=== PATIENT | male | born 1980 | race Caucasian/White ===

== ENCOUNTER 2019-01-26 07:24 | Day surgery (SDC) | payer OTHER ==
[~2019-01-26] VITALS: Ht 188 cm; Wt 159.1 kg
[~2019-01-26 07:24] MED LIST: ALBU90OI INH; AMLO5 PO; AMOCLA875; AMOCLA875 PO; ATEN25 PO; ATEN50 PO; ATOR20 PO; BUPR75 PO; BYDUREON P2 MG/0.65 SC; CITA20 PO; Citalopram HBr40 MG PO; Cleocin HCl300 MG PO; Crestor20 MG PO; EXEN10PI; Esgic Tablet1 EACH PO; GEMF600 PO; Glucophage1000 MG PO; INSULANPEN; LISHYD2012 PO; LOPE2C PO; LOVA20 PO; METF500 PO; METF500C PO; Novolin R100 UNIT/M SC; Novolog100 UNIT/2; Prinivil10 MG PO; ROSU10TA PO; TOBR.3OPO OP; TOUJEO SOL300 UNIT/1 SC; Ultram50 MG PO; VANCOMYCIN2 GM/500 M IV; Zofran Odt8 MG SL; Zofran8 MG PO
--- NOTE | 2019-01-26 10:25 | NUR ---
01/26/19 1025 Jose Pardo ASSISTED PT TO BATHROOM. INFORMED PT OF THE DELAY D/T PREVIOUS CASE RUNNING LONG. PT STATES AN UNDERSTANDING.
--- NOTE | 2019-01-26 11:30 | NUR ---
01/26/19 9998 Jose Pardo INJECTED MYLICON INTO BX PORT PER DR. TREVIZO.
== END 2019-01-26 12:32 | disposition home or self-care (01) ==
LOC: ORSCSDS 07:24
PROVIDERS: Student in an Organized Health Care Education/Training Program
PROC: 0DB98ZX Excision of Duodenum, Via Natural or Artificial Opening Endoscopic, Diagnostic (ICD-10-PCS; principal; 2019-01-26 10:00)
PROC: 0DBH8ZX Excision of Cecum, Via Natural or Artificial Opening Endoscopic, Diagnostic (ICD-10-PCS; principal; 2019-01-26 10:00)
PROC: 0DB48ZX Excision of Esophagogastric Junction, Via Natural or Artificial Opening Endoscopic, Diagnostic (ICD-10-PCS; principal; 2019-01-26 10:00)
DX: K92.1 Melena (principal); D12.0 Benign neoplasm of cecum; D50.9 Iron deficiency anemia, unspecified; K21.0 Gastro-esophageal reflux disease with esophagitis; K64.8 Other hemorrhoids; I10 Essential (primary) hypertension; G47.33 Obstructive sleep apnea (adult) (pediatric); E11.9 Type 2 diabetes mellitus without complications; E66.01 Morbid (severe) obesity due to excess calories; Z68.42 Body mass index [BMI] 45.0-49.9, adult; Z79.899 Other long term (current) drug therapy; Z87.891 Personal history of nicotine dependence
CPT/HCPCS: 82947; 88305; 88312; J2250; J7120

== ENCOUNTER → 2020-02-08 | Outpatient (CLI) | payer OTHER | END | disposition home or self-care (01) | LOC: PLD 14:35 → LAB SHORT 14:35 | DX: B35.3 Tinea pedis (principal) | CPT/HCPCS: 88305; 88312 ==

== ENCOUNTER → 2020-08-01 | Outpatient (CLI) | payer OTHER ==
[2020-08-01 15:15] LABS: Bilirubin, Urine Neg (Neg); Blood, Urine 4+ (Neg); Glucose Qualitative, Urine 2+ (Neg); Ketones, Urine Neg (Neg); Leukocyte Esterase, Urine Neg (Neg); Nitrite, Urine Neg (Neg); Protein, Urine 3+ (Neg); Specific Gravity, Urine 1.015 (1.003-1.022); Urobilinogen, Urine NORM (Normal)
[2020-08-01 15:22] LABS: Appearance, Urine Clear (Clear); Color, Urine Yellow (P-Yellow)
[2020-08-01 15:24] LABS: Amorphous Light (0-Heavy); Bacteria Few /hpf; Squamous Epithelial Cells Not Seen /hpf (Few); White Blood Cells, Urine 0-2 /hpf (0-5)
== END | disposition home or self-care (01) ==
LOC: LAB SHORT 13:57 → LAB 13:57
PROVIDERS: Internal Medicine
DX: N17.9 Acute kidney failure, unspecified (principal); R31.9 Hematuria, unspecified
CPT/HCPCS: 81001

== ENCOUNTER → 2021-11-24 | Outpatient (CLI) | payer OTHER | END | disposition home or self-care (01) | LOC: LAB SHORT 15:00 | DX: N18.30 Chronic kidney disease, stage 3 unspecified (principal); N39.0 Urinary tract infection, site not specified | CPT/HCPCS: 87086 ==

== ENCOUNTER → 2022-09-12 | Outpatient (CLI) | payer OTHER ==
[~2022-09-12] MED LIST changes: +HUMULIN R500 UNIT/2 SC
[2022-09-12 13:33] LABS: BASOPHILS ABSOLUTE AUTO 0.05 K/mm3 (0.00-0.23); BASOPHILS PERCENT AUTO 0 % (0-2); EOSINOPHILS ABSOLUTE AUTO 0.17 K/mm3 (0.00-0.68); EOSINOPHILS PERCENT AUTO 1 % (0-6); Hemoglobin 12.9 g/dL (13.5-17.5); IMMATURE GRAN ABSOLUTE AUTO 0.04 K/mm3 (0.00-0.10); IMMATURE GRAN PERCENT AUTO 0 % (0-1); LYMPHOCYTES ABSOLUTE AUTO 1.37 K/mm3 (0.84-5.20); LYMPHOCYTES PERCENT AUTO 11 % (21-46); MONOCYTES ABSOLUTE AUTO 0.85 K/mm3 (0.16-1.47); MONOCYTES PERCENT AUTO 7 % (4-13); Mean Corpuscular HGB 28.3 pg (26.0-34.0); Mean Corpuscular HGB Conc 32.3 g/dL (31.5-36.5); Mean Corpuscular Volume 88 fL (80-100); Mean Platelet Volume 9.3 fL (9.1-12.4); NEUTROPHILS ABSOLUTE AUTO 10.22 K/mm3 (1.96-9.15); NEUTROPHILS PERCENT AUTO 81 % (41-73); Platelet Count 447 K/mm3 (150-400); RDW Coefficient Variation 14.6 % (11.7-14.2); RDW Standard Deviation 46.7 fL (35.1-46.3); Red Blood Cell Count 4.56 M/mm3 (4.30-5.90)
[2022-09-12 13:46] LABS: Albumin/Globulin Ratio 0.9 (0.8-1.8); Bilirubin, Total 1.1 mg/dL (0.1-1.0); Bun/Creatinine Ratio 17.9 (12.0-20.0); Creatinine, Blood 1.12 mg/dL (0.60-1.20); Globulin, Blood 4.7 g/dL (2.2-4.0); Total Protein, Blood 8.7 g/dL (6.4-8.2)
== END ==
LOC: LAB SHORT 13:28 → LAB 13:28
PROVIDERS: Physician Assistant
DX: K76.9 Liver disease, unspecified (principal); R53.83 Other fatigue
CPT/HCPCS: 80053; 83690; 85025

== ENCOUNTER → 2023-11-04 | Outpatient (CLI) | payer OTHER ==
[2023-11-04 19:15] LABS: Creatinine Urine 57.4 mg/dL (27.00-270.00); Protein, Urine Quantitative 185.9 mg/dL (0.0-11.9)
== END | disposition home or self-care (01) ==
LOC: LAB 06:30 → LAB SHORT 06:30 → LAB FUT 10-24 12:20
PROVIDERS: Internal Medicine Nephrology
DX: N18.2 Chronic kidney disease, stage 2 (mild) (principal); D63.1 Anemia in chronic kidney disease; N25.81 Secondary hyperparathyroidism of renal origin; E55.9 Vitamin D deficiency, unspecified; E29.1 Testicular hypofunction; R76.9 Abnormal immunological finding in serum, unspecified; R94.5 Abnormal results of liver function studies; R94.6 Abnormal results of thyroid function studies
CPT/HCPCS: 81050; 82043; 82570; 84156

== ENCOUNTER → 2023-12-19 | Outpatient (CLI) | payer OTHER ==
[~2023-12-19] MED LIST changes: +Actos45 MG PO; +BYDUREON B2 MG/0.81 SC; -Crestor20 MG PO; +Crestor40 MG PO; +FAMO20 PO; +GLUCOPHAGE1000 M1 PO; +Norco 5-325 Ta1 EACH PO; +Prednisone50 MG
[2023-12-19 12:56] LABS: Creatinine Urine 55.2 mg/dL (27.00-270.00); Protein, Urine Quantitative 210.6 mg/dL (0.0-11.9)
== END ==
LOC: LAB EV 09:49 → LAB SHORT 09:49
PROVIDERS: Internal Medicine Nephrology
DX: N18.2 Chronic kidney disease, stage 2 (mild) (principal); D63.1 Anemia in chronic kidney disease; N25.81 Secondary hyperparathyroidism of renal origin; E78.00 Pure hypercholesterolemia, unspecified; R76.9 Abnormal immunological finding in serum, unspecified; R94.5 Abnormal results of liver function studies
CPT/HCPCS: 81050; 82043; 82570; 84156

== ENCOUNTER → 2024-02-24 | Outpatient (CLI) | payer OTHER | LOC: LAB 12:00 → LAB SHORT 12:00 | DX: L30.9 Dermatitis, unspecified (principal) | CPT/HCPCS: 87220 ==

== ENCOUNTER 2024-07-17 08:59 | Day surgery (SDC) | payer OTHER ==
[~2024-07-17] VITALS: Ht 188 cm; Wt 175.5 kg
[~2024-07-17 08:59] MED LIST changes: +Lactated Ringer's 1,000 ML IV ONE; +Lidocaine HCl/Pf 1% 5 ML VIAL ONE; +Ropivacaine 0.5% HCL/PF 5 MG/ML 30ML Vial ONE
[2024-07-17] MEDS ORDERED: Lactated Ringer's 1,000 ML IV ONE (09:41)
--- NOTE | 2024-07-17 09:42 | NUR ---
07/17/24 0942 George Rogers CALL LIGHT WITHIN REACH.
[2024-07-17] MEDS ORDERED: LISI5 PO (09:46)
[2024-07-17] MEDS ORDERED: RYBELSUS14 MG PO (09:47)
[2024-07-17] MEDS ORDERED: K-TAB ER20 MEQ PO (09:47)
[2024-07-17] MEDS ORDERED: FURO40 PO (09:48)
[2024-07-17] MEDS ORDERED: CeFAZolin Sodium 1000 mg Vial ONE (10:04)
[2024-07-17] MEDS ORDERED: NS 0 ML IV ONE (10:04)
[2024-07-17] MEDS ORDERED: CeFAZolin Sodium 2,000 MG VIAL ONE (10:05)
[2024-07-17] MEDS ORDERED: CeFAZolin Sodium 3,000 MG in NS 100 ML IV SCH (10:10)
[2024-07-17] MEDS ORDERED: FentaNYL Citrate 50 MCG/ML 2 ML Injection ONE (10:39)
[2024-07-17] MEDS ORDERED: Midazolam HCl 1MG / ML 2ML Vial ONE (10:39)
[2024-07-17] MEDS ORDERED: Midazolam HCL 1 MG/ML 5MLVIAL ONE (11:28)
--- NOTE | 2024-07-17 11:35 | NUR ---
07/17/24 1135 Nirmala Noel LIDOCAINE 1% MIXED 1:1 WITH ROPIVACAINE 0.5% TO MAKE LOCAL FOR INJECTION AT THE OPSITE BY DR CLIFTON.
[2024-07-17] MEDS ORDERED: Ondansetron HCl 2 MG / ML 2ML Vial ONE (12:05)
[2024-07-17 12:50] VITALS: BP 152/71
[2024-07-17] MEDS ORDERED: Ibuprofen 600 MG Tab ONE (13:19)
--- NOTE | 2024-07-17 13:26 | NUR ---
07/17/24 1326 Cynthia Clements PT. VERBALIZES OK NOT TO CALL OFFICE FOR RX. PT. VERBALIZES HE WILL JUST TAKE TYLENOL AT HOME. INSTRUCTED PT. THAT IF TYLENOL DIDN'T WORK TO CALL THE DR. PT. AGREED. PT. REFUSED THE IBUPROFEN ORDERED.
== END 2024-07-17 13:54 | disposition home or self-care (01) ==
LOC: ORSCSDS 08:59
PROVIDERS: Podiatrist
PROC: 0L8V0ZZ Division of Right Foot Tendon, Open Approach (ICD-10-PCS; principal; 2024-07-17 10:30)
PROC: 0L8W0ZZ Division of Left Foot Tendon, Open Approach (ICD-10-PCS; principal; 2024-07-17 10:30)
DX: L97.512 Non-pressure chronic ulcer of other part of right foot with fat layer exposed (principal); L97.522 Non-pressure chronic ulcer of other part of left foot with fat layer exposed; M20.5X1 Other deformities of toe(s) (acquired), right foot; M20.42 Other hammer toe(s) (acquired), left foot; M20.41 Other hammer toe(s) (acquired), right foot; I10 Essential (primary) hypertension; G47.33 Obstructive sleep apnea (adult) (pediatric); J45.909 Unspecified asthma, uncomplicated; E11.9 Type 2 diabetes mellitus without complications; E78.00 Pure hypercholesterolemia, unspecified; E66.01 Morbid (severe) obesity due to excess calories; Z68.43 Body mass index [BMI] 50.0-59.9, adult; Z79.899 Other long term (current) drug therapy; Z87.891 Personal history of nicotine dependence; Z79.84 Long term (current) use of oral hypoglycemic drugs; Z79.4 Long term (current) use of insulin
CPT/HCPCS: 82947; A9270; C1713; J0690; J2001; J2250; J2405; J2795; J3010; J7120

== ENCOUNTER → 2024-12-01 | Outpatient (CLI) | payer OTHER ==
[~2024-12-01] MED LIST changes: +FURO40 PO; +K-TAB ER20 MEQ PO; +LISI5 PO; -Lactated Ringer's 1,000 ML IV ONE; -Lidocaine HCl/Pf 1% 5 ML VIAL ONE; +RYBELSUS14 MG PO; -Ropivacaine 0.5% HCL/PF 5 MG/ML 30ML Vial ONE
== END | disposition home or self-care (01) ==
LOC: LAB SHORT 17:01 → LAB 17:01
DX: L03.032 Cellulitis of left toe (principal); L97.522 Non-pressure chronic ulcer of other part of left foot with fat layer exposed; E11.42 Type 2 diabetes mellitus with diabetic polyneuropathy
CPT/HCPCS: 87070; 87077; 87186; 87205

== ENCOUNTER → 2025-03-04 | Outpatient (CLI) | payer OTHER | LOC: LAB 15:30 → LAB SHORT 15:30 | DX: E11.42 Type 2 diabetes mellitus with diabetic polyneuropathy (principal); L97.522 Non-pressure chronic ulcer of other part of left foot with fat layer exposed | CPT/HCPCS: 87071; 87075; 87077; 87186; 87205 ==

== ENCOUNTER → 2025-03-17 | Outpatient (CLI) | payer OTHER ==
[2025-03-22 20:04] LABS: CORTISOL,URINE FREE - PER 24H 33.9 ug/d (<=60.0); CORTISOL,URN FREE - PER VOLUME 8.06 ug/L; CREATININE,URINE - PER 24H 3528 mg/d (1000-2500); CREATININE,URINE - PER VOLUME 84 mg/dL; HOURS COLLECTED 24 hr; TOTAL VOLUME 4200 mL
== END | disposition home or self-care (01) ==
LOC: LAB SHORT 08:45 → LAB 08:45
PROVIDERS: Internal Medicine Nephrology
DX: N18.2 Chronic kidney disease, stage 2 (mild) (principal); D63.1 Anemia in chronic kidney disease; E29.1 Testicular hypofunction; N25.81 Secondary hyperparathyroidism of renal origin; E55.9 Vitamin D deficiency, unspecified; N40.1 Benign prostatic hyperplasia with lower urinary tract symptoms; R39.9 Unspecified symptoms and signs involving the genitourinary system; R76.9 Abnormal immunological finding in serum, unspecified; R94.5 Abnormal results of liver function studies; R94.6 Abnormal results of thyroid function studies
CPT/HCPCS: 81050; 82530

== ENCOUNTER 2025-05-16 18:44 | Emergency (ER) | payer OTHER ==
[~2025-05-16] VITALS: Ht 188 cm; Wt 165.6 kg
[2025-05-16 19:44] LABS: BASOPHILS ABSOLUTE AUTO 0.08 K/mm3 (0.00-0.23); BASOPHILS PERCENT AUTO 1 % (0-2); EOSINOPHILS ABSOLUTE AUTO 0.18 K/mm3 (0.00-0.68); EOSINOPHILS PERCENT AUTO 2 % (0-6); Hematocrit 36.1 % (37.0-53.0); Hemoglobin 11.2 g/dL (13.5-17.5); IMMATURE GRAN ABSOLUTE AUTO 0.04 K/mm3 (0.00-0.10); IMMATURE GRAN PERCENT AUTO 0 % (0-1); LYMPHOCYTES ABSOLUTE AUTO 2.28 K/mm3 (0.84-5.20); LYMPHOCYTES PERCENT AUTO 22 % (21-46); MONOCYTES PERCENT AUTO 8 % (4-13); Mean Corpuscular HGB 26.4 pg (26.0-34.0); Mean Corpuscular Volume 85 fL (80-100); Mean Platelet Volume 9.5 fL (9.1-12.4); NEUTROPHILS PERCENT AUTO 67 % (41-73); Platelet Count 476 K/mm3 (150-400); RDW Coefficient Variation 15.3 % (11.7-14.2); RDW Standard Deviation 46.7 fL (35.1-46.3); Red Blood Cell Count 4.24 M/mm3 (4.30-5.90); White Blood Cell Count 10.18 K/mm3 (4.00-11.30)
[2025-05-16 19:44] LABS: Source, Urine Clean Catch
[2025-05-16 19:58] LABS: Appearance, Urine Clear (Clear); Bilirubin, Urine Neg (Neg); Blood, Urine 1+ (Neg); Color, Urine Yellow (P-Yellow); Glucose Qualitative, Urine Neg (Neg); Ketones, Urine Neg (Neg); Leukocyte Esterase, Urine Neg (Neg); Nitrite, Urine Neg (Neg); Protein, Urine 3+ (Neg); Specific Gravity, Urine 1.015 (1.003-1.022); Urobilinogen, Urine NORM (Normal)
[2025-05-16 20:04] LABS: Albumin, Blood 3.7 g/dL (3.4-5.0); Albumin/Globulin Ratio 0.8 (0.8-1.8); Bilirubin, Total 0.7 mg/dL (0.1-1.0); Bun/Creatinine Ratio 29.6 (12.0-20.0); Calcium, Blood 10.1 mg/dL (8.5-10.1); Creatinine, Blood 1.35 mg/dL (0.60-1.20); Globulin, Blood 4.7 g/dL (2.2-4.0); Potassium, Blood 4.5 mmol/L (3.5-5.5); Total Protein, Blood 8.4 g/dL (6.4-8.2)
[2025-05-16 20:10] LABS: Bacteria Not Seen /hpf; Mucus Light (0-Heavy); Red Blood Cells, Urine 0-2 /hpf (0-2); Squamous Epithelial Cells Not Seen /hpf (Few); White Blood Cells, Urine Not Seen /hpf (0-5)
[2025-05-16 20:30] VITALS: BP 149/73
== END 2025-05-16 20:40 | disposition home or self-care (01) ==
LOC: ER 18:44
PROVIDERS: Emergency Medicine
DX: N39.0 Urinary tract infection, site not specified (principal)
CPT/HCPCS: 80053; 81001; 85025; 99283

== ENCOUNTER → 2025-05-27 | Outpatient (CLI) | payer OTHER ==
[2025-05-27 11:22] LABS: Protein, Urine Quantitative 105.6 mg/dL (0.0-11.9)
[2025-05-27 11:32] LABS: Microalbumin, Urine Quant. 427.0 mg/L (0.000-20.000)
[2025-06-01 07:53] LABS: CORTISOL,U FREE - RATIO TO CRT 9.52 ug/g CRT; CORTISOL,URINE FREE - PER 24H 6.3 ug/d (<=60.0); CORTISOL,URN FREE - PER VOLUME 8.66 ug/L; CREATININE,URINE - PER 24H 664 mg/d (1000-2500); CREATININE,URINE - PER VOLUME 91 mg/dL; HOURS COLLECTED 24 hr
== END ==
LOC: LAB SHORT 07:30 → LAB 07:30 → LAB FUT 05-26 09:10
PROVIDERS: Internal Medicine Nephrology
DX: N18.30 Chronic kidney disease, stage 3 unspecified (principal); D63.1 Anemia in chronic kidney disease; N25.81 Secondary hyperparathyroidism of renal origin; E55.9 Vitamin D deficiency, unspecified; E78.00 Pure hypercholesterolemia, unspecified; R76.9 Abnormal immunological finding in serum, unspecified; R94.5 Abnormal results of liver function studies; R94.6 Abnormal results of thyroid function studies
CPT/HCPCS: 81050; 82043; 82530; 82570; 84156

== ENCOUNTER → 2025-09-14 | Outpatient (CLI) | payer OTHER ==
[2025-09-14 16:10] LABS: Hematocrit 35.3 % (37.0-53.0); Hemoglobin 10.8 g/dL (13.5-17.5); Mean Corpuscular HGB Conc 30.6 g/dL (31.5-36.5); Mean Corpuscular Volume 87 fL (80-100); NRBC ABSOLUTE 0.00 K/mm3 (0.00-0.02); NRBC Auto 0.0 /100 WBC (0.0-0.2); Platelet Count 573 K/mm3 (150-400); RDW Coefficient Variation 14.7 % (11.7-14.2); RDW Standard Deviation 46.7 fL (35.1-46.3)
== END | disposition home or self-care (01) ==
LOC: LAB 09:00 → LAB SHORT 09:00
PROVIDERS: Podiatrist
DX: L97.512 Non-pressure chronic ulcer of other part of right foot with fat layer exposed (principal); M14.671 Charcot's joint, right ankle and foot
CPT/HCPCS: 36415; 85027; 85651; 87070; 87077; 87147; 87186; 87205

== ENCOUNTER 2025-09-16 11:55 | Day surgery (SDC) | payer OTHER ==
[~2025-09-16 11:55] MED LIST changes: +HUMULIN R500 UNIT/1 SC
[2025-09-16] MEDS ORDERED: DAPTOmycin 650 MG in NS 50 ML IV SCH (12:05)
[2025-09-16 13:25] VITALS: BP 141/77
== END 2025-09-16 14:10 | disposition home or self-care (01) ==
LOC: ATC 11:55
DX: E11.42 Type 2 diabetes mellitus with diabetic polyneuropathy (principal); M14.671 Charcot's joint, right ankle and foot; E11.621 Type 2 diabetes mellitus with foot ulcer; L97.511 Non-pressure chronic ulcer of other part of right foot limited to breakdown of skin; E11.622 Type 2 diabetes mellitus with other skin ulcer; L97.312 Non-pressure chronic ulcer of right ankle with fat layer exposed; I12.9 Hypertensive chronic kidney disease with stage 1 through stage 4 chronic kidney disease, or unspecified chronic kidney disease; E11.22 Type 2 diabetes mellitus with diabetic chronic kidney disease; N18.2 Chronic kidney disease, stage 2 (mild); E78.00 Pure hypercholesterolemia, unspecified; M19.90 Unspecified osteoarthritis, unspecified site; E66.9 Obesity, unspecified; Z68.42 Body mass index [BMI] 45.0-49.9, adult; Z87.891 Personal history of nicotine dependence; Z79.4 Long term (current) use of insulin; Z79.83 Long term (current) use of bisphosphonates; Z79.84 Long term (current) use of oral hypoglycemic drugs; Z79.899 Other long term (current) drug therapy; R80.9 Proteinuria, unspecified; D63.1 Anemia in chronic kidney disease; N25.81 Secondary hyperparathyroidism of renal origin; R94.6 Abnormal results of thyroid function studies
CPT/HCPCS: 82043; 82570; 84156; 96365; J0878

== ENCOUNTER → 2025-09-16 | Outpatient (CLI) | payer OTHER ==
[2025-09-16 16:50] LABS: Microalbumin, Urine Quant. 326.0 mg/L (0.000-20.000); Protein, Urine Quantitative 69.7 mg/dL (0.0-11.9)
== END ==
LOC: LAB SHORT 13:38 → LAB 13:38 → LAB FUT 07-13 09:55
PROVIDERS: Internal Medicine Nephrology
DX: N18.30 Chronic kidney disease, stage 3 unspecified (principal); R80.9 Proteinuria, unspecified; D63.1 Anemia in chronic kidney disease; N25.81 Secondary hyperparathyroidism of renal origin; R76.9 Abnormal immunological finding in serum, unspecified; R94.6 Abnormal results of thyroid function studies
CPT/HCPCS: 82043; 82570; 84156

== ENCOUNTER 2025-09-17 01:22 | Day surgery (SDC) | payer OTHER ==
[2025-09-17] MEDS ORDERED: DAPTOmycin 650 MG in NS 50 ML IV SCH (06:00)
[2025-09-17 13:07] VITALS: BP 130/70
== END 2025-09-17 13:30 | disposition home or self-care (01) ==
LOC: ATC 01:22
DX: E11.621 Type 2 diabetes mellitus with foot ulcer (principal); E11.42 Type 2 diabetes mellitus with diabetic polyneuropathy; M14.671 Charcot's joint, right ankle and foot; L97.511 Non-pressure chronic ulcer of other part of right foot limited to breakdown of skin; L97.312 Non-pressure chronic ulcer of right ankle with fat layer exposed; E11.22 Type 2 diabetes mellitus with diabetic chronic kidney disease; N18.2 Chronic kidney disease, stage 2 (mild); E11.51 Type 2 diabetes mellitus with diabetic peripheral angiopathy without gangrene; I12.9 Hypertensive chronic kidney disease with stage 1 through stage 4 chronic kidney disease, or unspecified chronic kidney disease; Z89.411 Acquired absence of right great toe; Z79.4 Long term (current) use of insulin; Z79.899 Other long term (current) drug therapy
CPT/HCPCS: 96365; 99211; J0878

== ENCOUNTER 2025-09-18 00:11 | Day surgery (SDC) | payer OTHER ==
[~2025-09-18 00:11] MED LIST changes: -HUMULIN R500 UNIT/1 SC
[2025-09-18] MEDS ORDERED: DAPTOmycin 650 MG in NS 50 ML IV SCH (06:00)
[2025-09-18 13:27] VITALS: BP 120/75
== END 2025-09-18 13:47 | disposition home or self-care (01) ==
LOC: ATC 00:11
DX: E11.621 Type 2 diabetes mellitus with foot ulcer (principal); E11.42 Type 2 diabetes mellitus with diabetic polyneuropathy; M14.671 Charcot's joint, right ankle and foot; L97.511 Non-pressure chronic ulcer of other part of right foot limited to breakdown of skin; L97.312 Non-pressure chronic ulcer of right ankle with fat layer exposed; I12.9 Hypertensive chronic kidney disease with stage 1 through stage 4 chronic kidney disease, or unspecified chronic kidney disease; N18.2 Chronic kidney disease, stage 2 (mild); E11.22 Type 2 diabetes mellitus with diabetic chronic kidney disease; E11.51 Type 2 diabetes mellitus with diabetic peripheral angiopathy without gangrene; Z87.891 Personal history of nicotine dependence; Z79.4 Long term (current) use of insulin; Z79.899 Other long term (current) drug therapy
CPT/HCPCS: 96365; J0878

== ENCOUNTER 2025-09-19 01:31 | Day surgery (SDC) | payer OTHER ==
[2025-09-19] MEDS ORDERED: DAPTOmycin 650 MG in NS 50 ML IV SCH (06:00)
[2025-09-19 13:32] VITALS: BP 130/79
== END 2025-09-19 13:54 | disposition home or self-care (01) ==
LOC: ATC 01:31
DX: E11.621 Type 2 diabetes mellitus with foot ulcer (principal); E11.42 Type 2 diabetes mellitus with diabetic polyneuropathy; M14.671 Charcot's joint, right ankle and foot; L97.511 Non-pressure chronic ulcer of other part of right foot limited to breakdown of skin; L97.312 Non-pressure chronic ulcer of right ankle with fat layer exposed
CPT/HCPCS: 96365; J0878

== ENCOUNTER 2025-09-20 01:15 | Day surgery (SDC) | payer OTHER ==
[2025-09-20] MEDS ORDERED: DAPTOmycin 650 MG in NS 50 ML IV SCH (06:00)
[2025-09-20 13:27] VITALS: BP 142/101
== END 2025-09-20 13:59 | disposition home or self-care (01) ==
LOC: ATC 01:15
DX: E11.621 Type 2 diabetes mellitus with foot ulcer (principal); E11.42 Type 2 diabetes mellitus with diabetic polyneuropathy; M14.671 Charcot's joint, right ankle and foot; L97.511 Non-pressure chronic ulcer of other part of right foot limited to breakdown of skin; L97.312 Non-pressure chronic ulcer of right ankle with fat layer exposed; Z87.891 Personal history of nicotine dependence
CPT/HCPCS: 96365; J0878

== ENCOUNTER 2025-09-21 01:10 | Day surgery (SDC) | payer OTHER ==
[2025-09-21] MEDS ORDERED: DAPTOmycin 650 MG in NS 50 ML IV SCH (06:00)
[2025-09-21 13:07] VITALS: BP 120/68
== END 2025-09-21 13:27 | disposition home or self-care (01) ==
LOC: ATC 01:10
DX: E11.621 Type 2 diabetes mellitus with foot ulcer (principal); L97.511 Non-pressure chronic ulcer of other part of right foot limited to breakdown of skin; L97.312 Non-pressure chronic ulcer of right ankle with fat layer exposed; E11.42 Type 2 diabetes mellitus with diabetic polyneuropathy; E11.51 Type 2 diabetes mellitus with diabetic peripheral angiopathy without gangrene; E11.610 Type 2 diabetes mellitus with diabetic neuropathic arthropathy; I12.9 Hypertensive chronic kidney disease with stage 1 through stage 4 chronic kidney disease, or unspecified chronic kidney disease; E11.22 Type 2 diabetes mellitus with diabetic chronic kidney disease; N18.2 Chronic kidney disease, stage 2 (mild); E78.00 Pure hypercholesterolemia, unspecified; M19.90 Unspecified osteoarthritis, unspecified site; E66.9 Obesity, unspecified; Z68.42 Body mass index [BMI] 45.0-49.9, adult; Z87.891 Personal history of nicotine dependence; Z79.4 Long term (current) use of insulin; Z79.899 Other long term (current) drug therapy; Z89.411 Acquired absence of right great toe
CPT/HCPCS: 96365; J0878

== ENCOUNTER 2025-09-22 01:48 | Day surgery (SDC) | payer OTHER ==
[~2025-09-22 01:48] MED LIST changes: +HUMULIN R500 UNIT/1 SC
[2025-09-22] MEDS ORDERED: DAPTOmycin 650 MG in NS 50 ML IV SCH (06:00)
[2025-09-22 13:28] VITALS: BP 140/75
== END 2025-09-22 13:54 | disposition home or self-care (01) ==
LOC: ATC 01:48
DX: E11.42 Type 2 diabetes mellitus with diabetic polyneuropathy (principal); M14.671 Charcot's joint, right ankle and foot; L97.511 Non-pressure chronic ulcer of other part of right foot limited to breakdown of skin; L97.312 Non-pressure chronic ulcer of right ankle with fat layer exposed; I12.9 Hypertensive chronic kidney disease with stage 1 through stage 4 chronic kidney disease, or unspecified chronic kidney disease; E11.22 Type 2 diabetes mellitus with diabetic chronic kidney disease; N18.2 Chronic kidney disease, stage 2 (mild); E78.00 Pure hypercholesterolemia, unspecified; M19.172 Post-traumatic osteoarthritis, left ankle and foot; E11.51 Type 2 diabetes mellitus with diabetic peripheral angiopathy without gangrene; E66.9 Obesity, unspecified; Z68.42 Body mass index [BMI] 45.0-49.9, adult; Z87.891 Personal history of nicotine dependence; Z79.2 Long term (current) use of antibiotics; Z79.4 Long term (current) use of insulin; Z79.83 Long term (current) use of bisphosphonates; Z79.84 Long term (current) use of oral hypoglycemic drugs; Z79.899 Other long term (current) drug therapy
CPT/HCPCS: 96365; 99211; J0878

== ENCOUNTER 2025-10-19 21:38 | Emergency (ER) | payer OTHER ==
[~2025-10-19] VITALS: Ht 188 cm; Wt 160.6 kg
[2025-10-19 22:02] LABS: BASOPHILS ABSOLUTE AUTO 0.04 K/mm3 (0.00-0.23); BASOPHILS PERCENT AUTO 0 % (0-2); EOSINOPHILS ABSOLUTE AUTO 0.01 K/mm3 (0.00-0.68); EOSINOPHILS PERCENT AUTO 0 % (0-6); Hematocrit 35.6 % (37.0-53.0); Hemoglobin 11.5 g/dL (13.5-17.5); IMMATURE GRAN ABSOLUTE AUTO 0.06 K/mm3 (0.00-0.10); IMMATURE GRAN PERCENT AUTO 1 % (0-1); LYMPHOCYTES ABSOLUTE AUTO 0.77 K/mm3 (0.84-5.20); LYMPHOCYTES PERCENT AUTO 7 % (21-46); MONOCYTES ABSOLUTE AUTO 0.79 K/mm3 (0.16-1.47); MONOCYTES PERCENT AUTO 7 % (4-13); Mean Corpuscular HGB Conc 32.3 g/dL (31.5-36.5); Mean Corpuscular Volume 85 fL (80-100); NEUTROPHILS ABSOLUTE AUTO 9.25 K/mm3 (1.96-9.15); NEUTROPHILS PERCENT AUTO 85 % (41-73); NRBC ABSOLUTE 0.00 K/mm3 (0.00-0.02); NRBC Auto 0.0 /100 WBC (0.0-0.2); Platelet Count 332 K/mm3 (150-400); RDW Coefficient Variation 15.9 % (11.7-14.2); RDW Standard Deviation 49.3 fL (35.1-46.3)
[2025-10-19 22:29] LABS: Alanine Aminotransfer (ALT/SGP 49.0 U/L (12-78); Albumin, Blood 3.8 g/dL (3.4-5.0); Albumin/Globulin Ratio 0.8 (0.8-1.8); Anion Gap 11.0 mmol/L (3-11); Aspartate Aminotrans (AST/SGOT 39.0 U/L (12-37); Bilirubin, Total 1.1 mg/dL (0.1-1.0); Blood Urea Nitrogen 32.0 mg/dL (8-24); CO2, Blood 23.0 mmol/L (21-32); Calcium, Blood 9.6 mg/dL (8.5-10.1); Chloride, Blood 100.0 mmol/L (98-108); Creatinine, Blood 2.77 mg/dL (0.60-1.20); Globulin, Blood 4.7 g/dL (2.2-4.0); Glucose, Blood 220.0 mg/dL (70-99); Potassium, Blood 4.5 mmol/L (3.5-5.5); Sodium, Blood 129.0 mmol/L (136-145); Total Protein, Blood 8.5 g/dL (6.4-8.2)
[2025-10-19 22:44] LABS: Influenza A, PCR NEGATIVE (NEGATIVE); Influenza B, PCR NEGATIVE (NEGATIVE); Resp Syncytial Virus, PCR NEGATIVE (NEGATIVE); SARS-Cov-2 (COVID-19) PCR, MMC NEGATIVE (NEGATIVE)
[2025-10-20] MEDS ORDERED: NS 1,000 ML IV SCH (00:15)
[2025-10-20 01:10] LABS: Magnesium, Blood 1.6 mg/dL (1.6-2.4); Phosphorus, Blood 2.5 mg/dL (2.5-4.9)
[2025-10-20 02:25] LABS: Source, Urine Clean Catch
[2025-10-20 02:30] LABS: Bilirubin, Urine Neg (Neg); Glucose Qualitative, Urine Neg (Neg); Ketones, Urine Neg (Neg); Leukocyte Esterase, Urine Neg (Neg); Protein, Urine 3+ (Neg); Specific Gravity, Urine 1.015 (1.003-1.022); Urobilinogen, Urine NORM (Normal)
[2025-10-20 02:35] LABS: Color, Urine Yellow (P-Yellow)
[2025-10-20 02:36] LABS: Red Blood Cells, Urine 0-2 /hpf (0-2); White Blood Cells, Urine 0-2 /hpf (0-5)
[2025-10-20 04:30] VITALS: BP 124/65
== END 2025-10-20 05:21 | disposition home or self-care (01) ==
LOC: ER 21:38
PROVIDERS: Emergency Medicine; Student in an Organized Health Care Education/Training Program
DX: R06.02 Shortness of breath (principal); R79.89 Other specified abnormal findings of blood chemistry; I10 Essential (primary) hypertension; E11.9 Type 2 diabetes mellitus without complications; E78.5 Hyperlipidemia, unspecified; G47.33 Obstructive sleep apnea (adult) (pediatric); Z87.891 Personal history of nicotine dependence; Z79.84 Long term (current) use of oral hypoglycemic drugs; Z79.52 Long term (current) use of systemic steroids; Z79.899 Other long term (current) drug therapy; Z79.4 Long term (current) use of insulin
CPT/HCPCS: 71046; 71260; 80053; 81001; 83735; 84100; 84484; 85025; 85379; 87637; 93005; 93010; 96360-59; 99285-25; J7030; Q9967

== ENCOUNTER 2025-10-20 15:59 | Inpatient (IN) | payer OTHER ==
[~2025-10-20] VITALS: Ht 188 cm; Wt 158.9 kg
[2025-10-20] MEDS ORDERED: Ipratropium/Albuterol SulF 2.5-0.5MG/3 ML Amp INH ONE (16:10)
[2025-10-20 17:03] LABS: BASOPHILS ABSOLUTE AUTO 0.04 K/mm3 (0.00-0.23); BASOPHILS PERCENT AUTO 0 % (0-2); EOSINOPHILS ABSOLUTE AUTO 0.03 K/mm3 (0.00-0.68); EOSINOPHILS PERCENT AUTO 0 % (0-6); Hematocrit 29.7 % (37.0-53.0); Hemoglobin 9.6 g/dL (13.5-17.5); IMMATURE GRAN ABSOLUTE AUTO 0.06 K/mm3 (0.00-0.10); IMMATURE GRAN PERCENT AUTO 0 % (0-1); LYMPHOCYTES ABSOLUTE AUTO 1.17 K/mm3 (0.84-5.20); LYMPHOCYTES PERCENT AUTO 9 % (21-46); MONOCYTES ABSOLUTE AUTO 1.72 K/mm3 (0.16-1.47); MONOCYTES PERCENT AUTO 13 % (4-13); Mean Corpuscular HGB Conc 32.3 g/dL (31.5-36.5); Mean Corpuscular Volume 85 fL (80-100); NEUTROPHILS ABSOLUTE AUTO 10.50 K/mm3 (1.96-9.15); NEUTROPHILS PERCENT AUTO 78 % (41-73); NRBC ABSOLUTE 0.00 K/mm3 (0.00-0.02); NRBC Auto 0.0 /100 WBC (0.0-0.2); Platelet Count 290 K/mm3 (150-400); RDW Coefficient Variation 16.2 % (11.7-14.2); RDW Standard Deviation 50.4 fL (35.1-46.3)
[2025-10-20 17:15] LABS: Alanine Aminotransfer (ALT/SGP 36.0 U/L (12-78); Albumin, Blood 2.7 g/dL (3.4-5.0); Albumin/Globulin Ratio 0.6 (0.8-1.8); Anion Gap 10.0 mmol/L (3-11); Aspartate Aminotrans (AST/SGOT 29.0 U/L (12-37); Bilirubin, Total 1.1 mg/dL (0.1-1.0); Blood Urea Nitrogen 41.0 mg/dL (8-24); CO2, Blood 21.0 mmol/L (21-32); Calcium, Blood 8.3 mg/dL (8.5-10.1); Chloride, Blood 103.0 mmol/L (98-108); Creatinine, Blood 3.45 mg/dL (0.60-1.20); Globulin, Blood 4.4 g/dL (2.2-4.0); Glucose, Blood 184.0 mg/dL (70-99); Potassium, Blood 4.3 mmol/L (3.5-5.5); Sodium, Blood 130.0 mmol/L (136-145); Total Protein, Blood 7.1 g/dL (6.4-8.2)
[2025-10-20] MEDS ORDERED: NS 1,000 ML IV SCH ×3 (19:00→22:00)
[2025-10-20] MEDS ORDERED: Vancomycin (Pharmacy Consult) IV PRN (19:30)
[2025-10-20] MEDS ORDERED: Vancomycin HCL 2,500 MG in NS 500 ML IV ONE (19:30)
[2025-10-20] MEDS ORDERED: Cefepime HCl 2,000 MG in NS 100 ML IV ONE (19:30)
[2025-10-20 21:30] VITALS: BP 89/51
[2025-10-20] MEDS ORDERED: NS 500 ML IV SCH (21:45)
[2025-10-20 22:00] VITALS: BP 100/50
[2025-10-20] MEDS ORDERED: Ondansetron HCl 2 MG / ML 2ML Vial IV PRN (22:00)
[2025-10-20] MEDS ORDERED: Vancomycin (Pharmacy Consult) IV SCH (22:00)
[2025-10-20] MEDS ORDERED: FLU VACC TS2025-26(6MOS UP)/PF 45 MCG/0.5 ML SYRINGE IM SCH (22:00)
[2025-10-20 22:30] VITALS: BP 105/61
[2025-10-20 23:00] VITALS: BP 104/53
[2025-10-21] VITALS (45 sets, daily range): BP systolic 89–134; BP diastolic 43–72
[2025-10-21 03:38] LABS: BASOPHILS ABSOLUTE AUTO 0.03 K/mm3 (0.00-0.23); BASOPHILS PERCENT AUTO 0 % (0-2); EOSINOPHILS ABSOLUTE AUTO 0.02 K/mm3 (0.00-0.68); EOSINOPHILS PERCENT AUTO 0 % (0-6); Hematocrit 28.0 % (37.0-53.0); Hemoglobin 8.9 g/dL (13.5-17.5); IMMATURE GRAN ABSOLUTE AUTO 0.06 K/mm3 (0.00-0.10); IMMATURE GRAN PERCENT AUTO 1 % (0-1); LYMPHOCYTES ABSOLUTE AUTO 1.19 K/mm3 (0.84-5.20); LYMPHOCYTES PERCENT AUTO 10 % (21-46); MONOCYTES ABSOLUTE AUTO 1.58 K/mm3 (0.16-1.47); MONOCYTES PERCENT AUTO 14 % (4-13); Mean Corpuscular HGB Conc 31.8 g/dL (31.5-36.5); Mean Corpuscular Volume 86 fL (80-100); NEUTROPHILS ABSOLUTE AUTO 8.64 K/mm3 (1.96-9.15); NEUTROPHILS PERCENT AUTO 75 % (41-73); NRBC ABSOLUTE 0.00 K/mm3 (0.00-0.02); NRBC Auto 0.0 /100 WBC (0.0-0.2); Platelet Count 262 K/mm3 (150-400); RDW Coefficient Variation 16.4 % (11.7-14.2); RDW Standard Deviation 52.1 fL (35.1-46.3)
[2025-10-21 03:54] LABS: Prothrombin Time Results 12.4 Sec (9.7-11.5)
[2025-10-21 04:11] LABS: Alanine Aminotransfer (ALT/SGP 30.0 U/L (12-78); Albumin, Blood 2.6 g/dL (3.4-5.0); Albumin/Globulin Ratio 0.6 (0.8-1.8); Anion Gap 13.0 mmol/L (3-11); Aspartate Aminotrans (AST/SGOT 19.0 U/L (12-37); Bilirubin, Total 1.0 mg/dL (0.1-1.0); Blood Urea Nitrogen 50.0 mg/dL (8-24); CO2, Blood 20.0 mmol/L (21-32); Calcium, Blood 8.1 mg/dL (8.5-10.1); Chloride, Blood 104.0 mmol/L (98-108); Creatinine, Blood 4.12 mg/dL (0.60-1.20); Globulin, Blood 4.1 g/dL (2.2-4.0); Glucose, Blood 228.0 mg/dL (70-99); Magnesium, Blood 1.8 mg/dL (1.6-2.4); Potassium, Blood 4.6 mmol/L (3.5-5.5); Sodium, Blood 132.0 mmol/L (136-145); Total Protein, Blood 6.7 g/dL (6.4-8.2)
[2025-10-21] MEDS ORDERED: FentaNYL Citrate 50 MCG/ML 2 ML Injection IV PRN (04:35)
--- NOTE | 2025-10-21 05:35 | NUR ---
SHIFT SUMMARY PT ALERT AND ORIENTED WHILE AWAKE, ABLE TO MAKE NEEDS KNOWN, AND FOLLOWS COMMANDS. PT ON RA WITH SPO2 >95, PT HAVING INTERMITTENT SOB. BLOOD PRESSURES HAVE BEEN LABILE WITH MAP LOW 60 AND THEN BACK UP INTO THE 80'S, HR NSR AND IN THE 70-80'S, PT DENIES CHEST PAIN/PRESSURE. PT HAVING FREQUENT DIARRHEA, STOOL SAMPLE SENT; WAITING ON RESULTS. PT USING URINAL. R FOOT INJURY WITH SIGNIFICANT SWELLING, FREQUENT SHOOTING PAIN, WITH FENTANYL PRN. PT HAS NS RUNNING @ 125ML/HR. BED IN LOWEST POSITION, CALL LIGHT WITHIN REACH. WILL REPORT TO ONCOMING RN.
[2025-10-21 06:32] LABS: Campylobacter Sp Not Detected (NOT DETECT); E. Coli O157 Not Detected (NOT DETECT); Enteroaggregative E. coli-EAEC Not Detected (NOT DETECT); Enteropathogenic E. coli-EPEC Not Detected (NOT DETECT); Enterotoxigenic E. coli-ETEC Not Detected (NOT DETECT); Salmonella Sp Not Detected (NOT DETECT); Shiga Toxin-prod E. coli-STEC Not Detected (NOT DETECT); Shigella/Enteroin E. coli-EIEC Not Detected (NOT DETECT); Vibrio Sp Not Detected (NOT DETECT)
[2025-10-21] MEDS ORDERED: HYDROmorphone HCl/Pf 1MG SYR IV PRN (07:50)
[2025-10-21] MEDS ORDERED: Insulin Regular, Human 500 UNIT/ML 3ML SYR SC SCH (09:00)
[2025-10-21] MEDS ORDERED: Cefepime HCl 2,000 MG in NS 100 ML IV SCH (09:00)
[2025-10-21] MEDS ORDERED: Lactobacil 2-S.Thermo-Bifido 1 1 Cap PO SCH (09:00)
[2025-10-21] MEDS ORDERED: Tranexamic Acid 100 ML IV SCH (10:05)
[2025-10-21 11:05] LABS: BASOPHILS ABSOLUTE AUTO 0.03 K/mm3 (0.00-0.23); BASOPHILS PERCENT AUTO 0 % (0-2); EOSINOPHILS ABSOLUTE AUTO 0.02 K/mm3 (0.00-0.68); EOSINOPHILS PERCENT AUTO 0 % (0-6); Hematocrit 27.4 % (37.0-53.0); Hemoglobin 8.7 g/dL (13.5-17.5); IMMATURE GRAN ABSOLUTE AUTO 0.10 K/mm3 (0.00-0.10); IMMATURE GRAN PERCENT AUTO 1 % (0-1); LYMPHOCYTES ABSOLUTE AUTO 0.89 K/mm3 (0.84-5.20); LYMPHOCYTES PERCENT AUTO 8 % (21-46); MONOCYTES ABSOLUTE AUTO 1.35 K/mm3 (0.16-1.47); MONOCYTES PERCENT AUTO 12 % (4-13); Mean Corpuscular HGB Conc 31.8 g/dL (31.5-36.5); Mean Corpuscular Volume 86 fL (80-100); NEUTROPHILS ABSOLUTE AUTO 8.67 K/mm3 (1.96-9.15); NEUTROPHILS PERCENT AUTO 78 % (41-73); NRBC ABSOLUTE 0.00 K/mm3 (0.00-0.02); NRBC Auto 0.0 /100 WBC (0.0-0.2); Platelet Count 283 K/mm3 (150-400); RDW Coefficient Variation 16.4 % (11.7-14.2); RDW Standard Deviation 51.6 fL (35.1-46.3)
--- NOTE | 2025-10-21 17:08 | NUR ---
SHIFT SUMMARY PT A/OX4 AND COOPERATIVE OF CARE. PT ABLE TO EXPRESS NEEDS AND CALLS APPROPIATE. PT AFEBRILE FOR MOST OF SHIFT, FEVER NOTED AROUND 1600, TREATED PER EMAR. OTHER VSS THROUGHOUT SHIFT WITH O2 SATS IN THE 90'S ON RA. NO REPORT OF CHEST PAIN/PRESSURE THROUGHOUT SHIFT. NO REPORT OF SOB/DYSPNEA THROUGHOUT SHIFT. PT SEEN BY ORTHO TODAY, SEE ORTHO NOTES. PT STARTED ON HOME DOSE OF INSULIN, HOME INSULIN VERIFIED BY PHARMACY AND IN LOCK BOX OF ROOM. PT USING URINAL WHILE IN BED, TOLERATING WELL. POSITIVE BLOOD CULTURES NOTED TODAY, NOTIFIED.
[2025-10-21 18:37] LABS: Creatinine, Blood 4.13 mg/dL (0.60-1.20); Vancomycin, Random 16.2 ug/mL
--- NOTE | 2025-10-21 20:00 | NUR ---
ASSUMPTION OF CARE: ASSUMED CARE AT START OF SHIFT (1899). REPORT RECEIVED FROM DAY SHIFT RN. PT IS DOING WELL AND RESTING IN BED. PT IS ALERT AND FOLLOWING COMMANDS. PT STATES HAVING 8/10 R LEG/FOOT PAIN BUT NO CP OR SOB AT THIS TIME. LUNG SOUNDS ARE CLEAR AND EQUAL BILATERALLY, ON RA WITH SPO2 >95%. SINUS RYTHM WITH SBP: 120 MAP >65 HR: 80'S IV: PERIPHERAL IN LAC AND LUE. SKIN: R ANKLE WOUND CAUSING R FOOT TO TURN OUTWRADS. PT IS ABLE TO USE BEDSIDE COMMODE WITH ASSISTANCE. LINES AND CORDS PLACED OUT OF REACH. CALL LIGHT PLACED WITHIN REACH.
[2025-10-21] MEDS ORDERED: Heparin Sodium,Porcine 5,000 UNIT/0.5 ML SDV SC SCH (21:00)
[2025-10-22] VITALS (25 sets, daily range): BP systolic 96–135; BP diastolic 50–76
--- NOTE | 2025-10-22 00:55 | NUR ---
TRANSFER TO PCU: PT TRANSFERRED FROM ICU12 TO PCU7 @ 0040. REPORT GIVEN TO KENDALL MCNAIR. PT TRANSPORTEDD VIA HOSPITAL BED AND TRANSFERRED TO BED VIA SHEET DRAW. ALL PT BELONGINGS AND MEDICATIONS TRANSPORTED TO PCU WITH PT. PT WAS ASKED IT THEY WANTED THEIR FAMILY MEMEBERS NOTIFIED OF THE MOVE AND PT STATED THAT THEIR FAMILY WOULD FIGURE IT OUT IN THE MORNING AND NOT TO CALL THEM RIGHT NOW.
--- NOTE | 2025-10-22 02:01 | NUR ---
0030 PATIENT TRANSFERRED FROM ICU TO ROOM PCU 07 VIA BED, TRANSFERRED WITH ASSISTANCE TO BED, ALERT AND ORIENTED, LUNGS CLEAR, ABD ROUND, BUT SOFT, DENIES DIFFERENCE FROM EVERY DAY, DEIES NAUSEA OR VOMITING, STATED HAD LOOSE STOOLS AT HOME, IV TO LEFT UPPER ARM AND FOREARM, STATES PAIN IS TOLERABLE AT PRESENT TIME DENIES NEED FOR PAIN MEDICATION AT CURRENT TIME, TEMP IS 99.1 F TEMPORAL, REST OF VITAL SIGNS NORMAL, RIGHT FOOT SWOLLEN, RIGHT ANKEL LARGE PINK, DISCUSSED POSSIBLE AMPUTATION, STATED HE IS DECIDED IT IS TIME TO HAVE AMPUTATION DONE, REQUESTS TO BE NPO AFTER MIDNIGHT SO THEY ARE ABLE TO TAKE HIME TO SURGERY IF THAT IS DECIDED. WILL MONITOR BOLLD SUGAR EVERY 6 HOURS UNTIL HE IS NO LONGER NPO. WILL CONTINUE TO MONITOR THROUGHOUT THE NIGHT. CALL LIGHT IS IN REACH, EDUCATED HOW TO USE CALL LIGHT, BED IN LOW AND LOCKED POSITION.
[2025-10-22 03:57] LABS: BASOPHILS ABSOLUTE AUTO 0.03 K/mm3 (0.00-0.23); BASOPHILS PERCENT AUTO 0 % (0-2); EOSINOPHILS ABSOLUTE AUTO 0.12 K/mm3 (0.00-0.68); EOSINOPHILS PERCENT AUTO 1 % (0-6); Hematocrit 27.6 % (37.0-53.0); Hemoglobin 8.8 g/dL (13.5-17.5); IMMATURE GRAN ABSOLUTE AUTO 0.06 K/mm3 (0.00-0.10); IMMATURE GRAN PERCENT AUTO 1 % (0-1); LYMPHOCYTES ABSOLUTE AUTO 1.08 K/mm3 (0.84-5.20); LYMPHOCYTES PERCENT AUTO 11 % (21-46); MONOCYTES ABSOLUTE AUTO 1.09 K/mm3 (0.16-1.47); MONOCYTES PERCENT AUTO 11 % (4-13); Mean Corpuscular HGB Conc 31.9 g/dL (31.5-36.5); Mean Corpuscular Volume 85 fL (80-100); NEUTROPHILS ABSOLUTE AUTO 7.38 K/mm3 (1.96-9.15); NEUTROPHILS PERCENT AUTO 76 % (41-73); NRBC ABSOLUTE 0.00 K/mm3 (0.00-0.02); NRBC Auto 0.0 /100 WBC (0.0-0.2); Platelet Count 273 K/mm3 (150-400); RDW Coefficient Variation 16.5 % (11.7-14.2); RDW Standard Deviation 52.0 fL (35.1-46.3)
[2025-10-22 04:24] LABS: Alanine Aminotransfer (ALT/SGP 23.0 U/L (12-78); Albumin, Blood 2.3 g/dL (3.4-5.0); Albumin/Globulin Ratio 0.5 (0.8-1.8); Anion Gap 12.0 mmol/L (3-11); Aspartate Aminotrans (AST/SGOT 16.0 U/L (12-37); Bilirubin, Total 0.6 mg/dL (0.1-1.0); Blood Urea Nitrogen 47.0 mg/dL (8-24); CO2, Blood 20.0 mmol/L (21-32); Calcium, Blood 8.2 mg/dL (8.5-10.1); Chloride, Blood 105.0 mmol/L (98-108); Creatinine, Blood 3.62 mg/dL (0.60-1.20); Globulin, Blood 4.7 g/dL (2.2-4.0); Glucose, Blood 99.0 mg/dL (70-99); Potassium, Blood 3.6 mmol/L (3.5-5.5); Sodium, Blood 133.0 mmol/L (136-145); Total Protein, Blood 7.0 g/dL (6.4-8.2)
--- NOTE | 2025-10-22 05:29 | NUR ---
PATIENT ALERT ANDO ORIENTED WORE CPAP ALL NIGHT WHILE SLEEPING, LUNGS CLEAR, PAIN TO RIGHT LOWER EXTREMITY GAVE DILAUDID 1MG AND ZOFRAN, LAST TIME HE SAID IT MADE HIM REALLY NAUSEATED AND LOWERED HIS BLOOD PRESSURE WOULD LIKE TO TAKE 1MG THIS TIME. TOLERATED WITH OUT PROBLEMS BLOOD SUGAR 71 THIS AM, GAVE HIM 8 OZ OF ORANGE JUICE. WILL CONTINUE TO MONITOR
[2025-10-22] MEDS ORDERED: Potassium Chl 10MEQ/Water100ML 100 ML IV ONE (06:35)
--- NOTE | 2025-10-22 08:39 | NUR ---
AM NOTE: DR. BROWN (ORTHO) IN ROOM ROUNDING PATIENT AT THIS TIME. SPOKE TO PATIENT c PLAN OF CARE. PATIENT AGREED c PROCEDURE TO R FOOT.
[2025-10-22] MEDS ORDERED: Dextrose 50% 50 ML Vial IV ONE (09:20)
[2025-10-22] MEDS ORDERED: Tranexamic Acid 100 ML IV SCH (10:10)
[2025-10-22] MEDS ORDERED: D5W-LR 1,000 ML IV SCH (11:00)
--- NOTE | 2025-10-22 11:47 | NUR ---
OUT OF ROOM NOTE: PATIENT LEFT THE ROOM AT 1147 VIA BED TO PREOP FOR SURGERY.
[2025-10-22] MEDS ORDERED: NS 1,000 ML IV ONE (12:16)
[2025-10-22] MEDS ORDERED: NS 1,000 ML IV SCH (12:25)
[2025-10-22] MEDS ORDERED: FentaNYL Citrate 50 MCG/ML 5 ML Injection ONE (12:32)
[2025-10-22] MEDS ORDERED: Rocuronium Bromide 10 MG/ML 5ML Injection IV ONE (12:32)
[2025-10-22] MEDS ORDERED: Dexamethasone Sod Phos 10 MG/ML 1ML VIAL ONE (13:01)
[2025-10-22] MEDS ORDERED: Ondansetron HCl 2 MG / ML 2ML Vial ONE ×2 (13:48→14:55)
[2025-10-22] MEDS ORDERED: Neostigmine Methylsulfate 5MG/5ML SYR ONE (13:48)
[2025-10-22] MEDS ORDERED: Glycopyrrolate 0.2 MG/ML 5ML VIAL ONE (13:48)
[2025-10-22] MEDS ORDERED: HYDROmorphone HCl/Pf 1MG SYR ONE ×3 (14:08→14:55)
[2025-10-22] MEDS ORDERED: HYDROmorphone HCl/Pf 1MG SYR IV PRN ×2 (14:10)
[2025-10-22] MEDS ORDERED: Ondansetron HCl 2 MG / ML 2ML Vial IV PRN (14:10)
[2025-10-22] MEDS ORDERED: FentaNYL Citrate 50 MCG/ML 2 ML Injection IV PRN ×2 (14:10)
[2025-10-22] MEDS ORDERED: FentaNYL Citrate 50 MCG/ML 2 ML Injection ONE (15:16)
[2025-10-22 17:08] LABS: Vancomycin, Random 18.4 ug/mL
--- NOTE | 2025-10-22 17:21 | NUR ---
SHIFT SUMMARY: PATIENT BACK IN ROOM AT AROUND 1540'S FROM PACU, R BKA DONE BY DR. OCONNOR (ORTHO), DRESSING TO SITE C/D/I, ELEVATED ON PILLOWS. PATIENT POST-OP VITALS TAKEN. PATIENT A/OX4, STILL LETHARGIC FROM PROCEDURE, BUT RESPONDS c VERBAL STIMULI. PATIENT DENIES CP/PRESSURE, SOB, N/V AND DIZZINESS. PATIENT ON TELE, SR HR IN 80'S BPM. PATIENT FAMILY AT BEDSIDE. BEDSIDE REPORTS GIVEN TO TABBY ADRIAN.
--- NOTE | 2025-10-22 18:19 | NUR ---
ASSUMED CARE. PT A/OX4 PLEASENT, PT POST OP RIGHT LEG BKA, C/O PAIN 06/27. PT MEDICATED PER JAN. PT INC OF STOOL, LINEN CHANGED, PT WAS ABLE TO ASSIST WITH CARE. NOTED BLOOD SUGAR AT 245, PT REFUSING TO EAT IV DEXTROS FLUIDS STOPPED AND LR STARTED. PT HAS OWN MEDS AND HAS BEEN IN THE 80S/ 90S BLOOD SUGAR ALL DAY. INSULIN WAS HELD AND WILL BE REASSESSED AFTER SOME FLUIDS INFUSED TO MAKE SURE SUGAR DOES NOT DROP. CALL LIGHT WITHIN REACH
[2025-10-23 03:55] VITALS: BP 134/85
[2025-10-23 05:01] LABS: BASOPHILS ABSOLUTE AUTO 0.03 K/mm3 (0.00-0.23); BASOPHILS PERCENT AUTO 0 % (0-2); EOSINOPHILS ABSOLUTE AUTO 0.00 K/mm3 (0.00-0.68); EOSINOPHILS PERCENT AUTO 0 % (0-6); Hematocrit 25.4 % (37.0-53.0); Hemoglobin 8.1 g/dL (13.5-17.5); IMMATURE GRAN ABSOLUTE AUTO 0.08 K/mm3 (0.00-0.10); IMMATURE GRAN PERCENT AUTO 1 % (0-1); LYMPHOCYTES ABSOLUTE AUTO 0.51 K/mm3 (0.84-5.20); LYMPHOCYTES PERCENT AUTO 6 % (21-46); MONOCYTES ABSOLUTE AUTO 0.57 K/mm3 (0.16-1.47); MONOCYTES PERCENT AUTO 6 % (4-13); Mean Corpuscular HGB Conc 31.9 g/dL (31.5-36.5); Mean Corpuscular Volume 85 fL (80-100); NEUTROPHILS ABSOLUTE AUTO 7.99 K/mm3 (1.96-9.15); NEUTROPHILS PERCENT AUTO 87 % (41-73); NRBC ABSOLUTE 0.00 K/mm3 (0.00-0.02); NRBC Auto 0.0 /100 WBC (0.0-0.2); Platelet Count 295 K/mm3 (150-400); RDW Coefficient Variation 16.3 % (11.7-14.2); RDW Standard Deviation 50.8 fL (35.1-46.3)
[2025-10-23 05:50] LABS: Alanine Aminotransfer (ALT/SGP 23.0 U/L (12-78); Albumin, Blood 2.1 g/dL (3.4-5.0); Albumin/Globulin Ratio 0.4 (0.8-1.8); Anion Gap 14.0 mmol/L (3-11); Aspartate Aminotrans (AST/SGOT 18.0 U/L (12-37); Bilirubin, Total 0.5 mg/dL (0.1-1.0); Blood Urea Nitrogen 60.0 mg/dL (8-24); CO2, Blood 17.0 mmol/L (21-32); Calcium, Blood 8.4 mg/dL (8.5-10.1); Chloride, Blood 106.0 mmol/L (98-108); Creatinine, Blood 3.68 mg/dL (0.60-1.20); Globulin, Blood 5.2 g/dL (2.2-4.0); Glucose, Blood 337.0 mg/dL (70-99); Potassium, Blood 5.1 mmol/L (3.5-5.5); Sodium, Blood 132.0 mmol/L (136-145); Total Protein, Blood 7.3 g/dL (6.4-8.2)
--- NOTE | 2025-10-23 06:02 | NUR ---
SHIFT SUMMARY PATIENT A/O X 4, COOPERATIVE WITH CARE AND MAKES NEEDS KNOWN. HE IS ANXIOUS ABOUT DISCHARGE AND LIFESTYLE CHANGES WITH RIGHT BKA. RESPONDS WELL TO DISCUSSION AND EDUCATION. SINUS RHYTHM 60-70s. SATS MAINTAINED >95 % ON ROOM AIR, USES CPAP AT NIGHT. PATIENT USES URINAL IN BED WITHOUT DIFFICULTY. S/P RIGHT BKA, COMPLAINS OF RIGHT LEG PAIN THAT GETS TO 9/10, TREATED PER EMAR. RIGHT BKA DRESSING IS C/D/I. NO ACUTE EVENTS THIS SHIFT. PATIENT RESTING COMFORTABLY IN ROOM. BED LOCKED IN LOWEST POSITION AND CALL LIGHT WITHIN REACH.
[2025-10-23 08:02] VITALS: BP 126/86
[2025-10-23] MEDS ORDERED: Sodium Bicarb 8.4% Inj 100 MEQ in Sodium Chloride 0.45% 1,000 ML IV SCH ×2 (08:30→21:20)
[2025-10-23] MEDS ORDERED: OxyCODONE 5 mg/Acetamin 325 mg TABLET PO PRN (10:30)
[2025-10-23] MEDS ORDERED: HYDROmorphone HCl/Pf 1MG SYR IV PRN (10:30)
[2025-10-23] MEDS ORDERED: Darbepoetin (Pharmacy Consult) SC SCH (11:05)
[2025-10-23 12:02] VITALS: BP 121/70
[2025-10-23 14:35] LABS: Anion Gap 13.0 mmol/L (3-11); Blood Urea Nitrogen 59.0 mg/dL (8-24); CO2, Blood 19.0 mmol/L (21-32); Calcium, Blood 8.6 mg/dL (8.5-10.1); Chloride, Blood 104.0 mmol/L (98-108); Creatinine, Blood 3.43 mg/dL (0.60-1.20); Glucose, Blood 336.0 mg/dL (70-99); Potassium, Blood 4.2 mmol/L (3.5-5.5); Sodium, Blood 132.0 mmol/L (136-145)
[2025-10-23] MEDS ORDERED: CeFAZolin Sodium 2,000 MG in NS 100 ML IV SCH (16:00)
[2025-10-23] MEDS ORDERED: Insulin Human Lispro 100 Units/ML 3ML Syringe SC SCH (16:30)
[2025-10-23 16:36] VITALS: BP 115/67
[2025-10-23] MEDS ORDERED: ALEN70 PO (16:50)
--- NOTE | 2025-10-23 18:45 | NUR ---
SHIFT SUMMARY PT A&Ox4, CALLS AND COMMUNICATES NEEDS APPROPRIATELY. BP STABLE, SINUS 80's, DENIES CP/RPESSURE. SpO2> 92% RA WHILE AWAKE, HOME CPAP WHILE ASLEEP, DENIES SOB. ASSESSED R BKA WITH SURGEON AT BEDSIDE, FIRST POST OP DRESSING TO HAPPEN TOMORROW BY SURGEON. MANAGED PT PAIN PER EMAR. Q2 TURNS PROVIDED. IND WITH URINAL. NO OTHER EVENTS, WILL REPORT TO ONCOMING RN.
[2025-10-23 19:40] VITALS: BP 113/67
[2025-10-23] MEDS ORDERED: N-Acetylcysteine 600 MG CAP PO SCH (21:00)
[2025-10-23 23:21] VITALS: BP 105/56
[2025-10-24 04:01] LABS: BASOPHILS ABSOLUTE AUTO 0.04 K/mm3 (0.00-0.23); BASOPHILS PERCENT AUTO 0 % (0-2); EOSINOPHILS ABSOLUTE AUTO 0.12 K/mm3 (0.00-0.68); EOSINOPHILS PERCENT AUTO 1 % (0-6); Hematocrit 28.1 % (37.0-53.0); Hemoglobin 9.0 g/dL (13.5-17.5); IMMATURE GRAN ABSOLUTE AUTO 0.12 K/mm3 (0.00-0.10); IMMATURE GRAN PERCENT AUTO 1 % (0-1); LYMPHOCYTES ABSOLUTE AUTO 1.31 K/mm3 (0.84-5.20); LYMPHOCYTES PERCENT AUTO 11 % (21-46); MONOCYTES ABSOLUTE AUTO 0.77 K/mm3 (0.16-1.47); MONOCYTES PERCENT AUTO 6 % (4-13); Mean Corpuscular HGB Conc 32.0 g/dL (31.5-36.5); Mean Corpuscular Volume 84 fL (80-100); NEUTROPHILS ABSOLUTE AUTO 9.92 K/mm3 (1.96-9.15); NEUTROPHILS PERCENT AUTO 81 % (41-73); NRBC ABSOLUTE 0.00 K/mm3 (0.00-0.02); NRBC Auto 0.0 /100 WBC (0.0-0.2); Platelet Count 406 K/mm3 (150-400); RDW Coefficient Variation 15.9 % (11.7-14.2); RDW Standard Deviation 49.2 fL (35.1-46.3)
[2025-10-24 04:10] VITALS: BP 118/69
[2025-10-24 04:35] LABS: Albumin, Blood 2.0 g/dL (3.4-5.0); Anion Gap 12 mmol/L (3-11); Blood Urea Nitrogen 58 mg/dL (8-24); CO2, Blood 21 mmol/L (21-32); Calcium, Blood 8.4 mg/dL (8.5-10.1); Chloride, Blood 107 mmol/L (98-108); Creatinine, Blood 3.28 mg/dL (0.60-1.20); Glucose, Blood 127 mg/dL (70-99); Magnesium, Blood 1.9 mg/dL (1.6-2.4); Phosphorus, Blood 4.7 mg/dL (2.5-4.9); Potassium, Blood 3.5 mmol/L (3.5-5.5); Sodium, Blood 136 mmol/L (136-145)
--- NOTE | 2025-10-24 05:58 | NUR ---
SHIFT SUMMARY PATIENT A/O X 4, USES CALL LIGHT APPROPRIATELY AND IS COOPERATIVE WITH CARE. SINUS RHYTHM 60-70s, BP STABLE. SpO2 >92% ON ROOM AIR, CPAP USE AT NIGHT. PATIENT USES URINAL IN BED WITHOUT DIFFICULTY. RIGHT LEG PAIN IS WELL CONTROLLED, TREATED PER EMAR. PATIENT WOKE UP AT APPROXIMATELY 0130 FEELING LIGHT HEADED AND SHAKY, CBG 51. AFTER JUICE AND PEANUT BUTTER CBG UP TO 88 AND ASYMPTOMATIC. PATIENT RESTING COMFORTABLY IN ROOM. BED LOCKED IN LOWEST POSITION, CALL LIGHT WITHIN REACH.
[2025-10-24] MEDS ORDERED: Sodium Bicarb 8.4% Inj 100 MEQ in Sodium Chloride 0.45% 1,000 ML IV SCH (07:00)
[2025-10-24 08:00] VITALS: BP 123/76
[2025-10-24] MEDS ORDERED: Sodium Bicarb 8.4% Inj 50 MEQ in Sodium Chloride 0.45% 1,000 ML IV SCH (08:20)
[2025-10-24 12:45] VITALS: BP 143/85
[2025-10-24] MEDS ORDERED: Darbepoetin Alfa In Albumn Sol 60 MCG/0.3 ML Syringe SC ONE (16:00)
[2025-10-24 16:18] VITALS: BP 128/75
[2025-10-24] MEDS ORDERED: NS 250 ML IV PRN (16:35)
--- NOTE | 2025-10-24 16:50 | NUR ---
SHIFT SUMMARY/TRANSFER PATIENT IS ALERT AND ORIENTED, ABLE TO FOLLOW COMMANDS AND MAKE NEEDS KNOWN. VSS, TELE IN PLACE, SINUS 70'S, PATIENT DENIES CHEST PAIN OR PRESSURE, SPO2 >90% ON RA. PATIENT WEARS CPAP AT NOC. DENIES CHEST PAIN OR PRESSURE. PATIENT DENIES N/V/D. RIGHT BKA, DRESSING CHANGE PERFORMED BY PROVIDER THIS AM, SEE ORDERS FOR DRESSING CHANGE DIRECTIONS. BICARB GTT STOPPED PER DR STOLL AT 1200. PATIENT IS BEDREST PENDING PT EVAL. PATIENT UP IN BED, BED IN LOWEST POSITION, CALL LIGHT WITHIN REACH. REPORT GIVEN TO MED FLOOR RN. PATIENT LEFT UNIT VIA HOSPITAL BED AT 1630 , ALL PERSONAL BELONGINGS WITH PATIENT. PATIENT IN NO SIGNS OF DISTRESS.
[2025-10-24 16:59] VITALS: BP 134/76
--- NOTE | 2025-10-24 17:41 | NUR ---
PT TRANSFERED FROM PCU TO [facility] FLOOR. BED SWITCH COMPLETED, PT REMAINS ON BEDREST UNTIL PT/OT EVAL. DRESSING C/D/I, DRESSING ORDERS IN PLACE, DUE TO BE CHANGED ON 10/26/25 PER ORDERS. PT REPORTS PAIN WELL CONTROLED WITH CURRENT REGIMEN. MEDICATED ONE TIME ON [facility] FLOOR. PT A/Ox4. ABLE TO MAKE NEEDS KNOWN. ORIENTED TO ROOM AND CALL SYSTEM. PT CURRENTLY RESTING IN BED EATING DINNER, CALL LIGHT WITHIN REACH AND BED IN LOWEST POSITION. PLAN FOR SNF DISCHARGE IN 1-2 DAYS.
[2025-10-24 20:16] VITALS: BP 118/69
[2025-10-25 00:35] VITALS: BP 116/68
[2025-10-25 05:01] VITALS: BP 142/81
[2025-10-25 06:34] LABS: BASOPHILS ABSOLUTE AUTO 0.05 K/mm3 (0.00-0.23); BASOPHILS PERCENT AUTO 1 % (0-2); EOSINOPHILS ABSOLUTE AUTO 0.17 K/mm3 (0.00-0.68); EOSINOPHILS PERCENT AUTO 2 % (0-6); Hematocrit 29.3 % (37.0-53.0); Hemoglobin 9.3 g/dL (13.5-17.5); IMMATURE GRAN ABSOLUTE AUTO 0.22 K/mm3 (0.00-0.10); IMMATURE GRAN PERCENT AUTO 3 % (0-1); LYMPHOCYTES ABSOLUTE AUTO 1.76 K/mm3 (0.84-5.20); LYMPHOCYTES PERCENT AUTO 21 % (21-46); MONOCYTES ABSOLUTE AUTO 0.62 K/mm3 (0.16-1.47); MONOCYTES PERCENT AUTO 8 % (4-13); Mean Corpuscular HGB Conc 31.7 g/dL (31.5-36.5); Mean Corpuscular Volume 85 fL (80-100); NEUTROPHILS ABSOLUTE AUTO 5.42 K/mm3 (1.96-9.15); NEUTROPHILS PERCENT AUTO 66 % (41-73); NRBC ABSOLUTE 0.00 K/mm3 (0.00-0.02); NRBC Auto 0.0 /100 WBC (0.0-0.2); Platelet Count 466 K/mm3 (150-400); RDW Coefficient Variation 16.0 % (11.7-14.2); RDW Standard Deviation 50.2 fL (35.1-46.3)
[2025-10-25 06:42] LABS: Hematocrit 29.6 % (37.0-53.0); Hemoglobin 9.4 g/dL (13.5-17.5)
--- NOTE | 2025-10-25 06:46 | NUR ---
SHIFT SUMMARY; PT A/OX4 AND AT BEDREST DUE TO NEW R BKA. PT REPORTS 5/10 PAIN ON THE 0-10 PAIN SCALE. PT MEDICATED PER EMAR AND PILLOW IS PLACED UNDER R BKA. PT IS ABLE TO REPOSITION INDEPENDENTLY WHEN NEEDED. PER REPORT FROM DAY SHIFT, DRESSING CHANGE OCCURRED TODAY AND IS DUE AGAIN ON Saturday10/26/2025. STUMP SOCK IN PLACE, APPEARS CLEAN AND DRY. PT S BLOOD SUGAR READING IN THE MID 80S AT APPROX 2230 AND IS SYMPTOMATIC. PT ATE CARBOHYDRATE SNACKS TO INCREASE LEVELS AND HAS IMPROVEMENT OF S/SXS. PT TOLERATING CPAP, HOWEVER 1 L O2 HAS BEEN ADDED W/ CPAP TO KEEP O2 SATS > 92%. PT ON TELE READING SR IN THE 60-70S. VSS. BED IN LOWEST POSITION AND CALL LIGHT WITHIN REACH.
[2025-10-25 07:04] LABS: Albumin, Blood 2.1 g/dL (3.4-5.0); Anion Gap 12 mmol/L (3-11); Blood Urea Nitrogen 48 mg/dL (8-24); CO2, Blood 23 mmol/L (21-32); Calcium, Blood 8.6 mg/dL (8.5-10.1); Chloride, Blood 108 mmol/L (98-108); Creatinine, Blood 2.62 mg/dL (0.60-1.20); Glucose, Blood 129 mg/dL (70-99); Magnesium, Blood 1.8 mg/dL (1.6-2.4); Phosphorus, Blood 4.1 mg/dL (2.5-4.9); Potassium, Blood 3.8 mmol/L (3.5-5.5); Sodium, Blood 139 mmol/L (136-145)
[2025-10-25 07:38] VITALS: BP 143/77
[2025-10-25 11:24] VITALS: BP 125/72
[2025-10-25 14:34] VITALS: BP 147/78
--- NOTE | 2025-10-25 16:14 | NUR ---
RN CONTACTED DR. SHRESTHA NOTIFYING PT HAS HAD NO BM x4 DAYS, BOWEL TONES HYPOACTIVE, AND NO BOWEL CARE ORDERS IN PLACE. PROVIDER VERBALIZED UNDERSTANDING AND REPORTS SHE WILL ORDER BOWEL CARE. NO TELEPHONE ORDERS PROVIDED.
[2025-10-25] MEDS ORDERED: Polyethylene Glycol 3350 17 gm PO PRN (16:20)
--- NOTE | 2025-10-25 16:37 | NUR ---
SHIFT SUMMARY NO ACUTE CHANGES, A/Ox4, ABLE TO MAKE NEEDS KNOWN, USES CALL SYSTEM APPROPRIATELY. VITALS WNL. PAIN WELL MANAGED WITH CURRENT REGIMEN. PT UP TO CHAIR FOR A FEW HOURS TODAY. PT IS NOW A 2 PERSON ASSIST WITH FWW AND GB TO CHAIR/COMMODE. DRESSING TO R BKA REMAINS C/D/I, DUE TO BE CHANGED 10/26/25. PT CONTINUES TO HAVE GOOD ORAL INTAKE. PT CURRENTLY RESTING IN BED WITH BED IN LOWEST POSITION AND CALL LIGHT WITHIN REACH. FAMILY AT BEDSIDE VISITING.
[2025-10-25] MEDS ORDERED: Misc. Injectable SC ONE (17:25)
--- NOTE | 2025-10-25 18:01 | NUR ---
CALL TO PHYSICIAN RE PT CBG 99. REPORTED YESTERDAY AT 1700 PT CBG 155 AND 115 UNITS HUMILIN R ADMINISTERED, AROUND 2200 PT CBG 82. PER PROVIDER ORDERS HOLD 115 UNITS AND ADMINISTER 50 UNITS ONE TIME OF HUMILIN R. ORDER READ BACK AND VERIFIED BY PHYSICIAN. 50 UNITS ADMINISTERED BY THIS RN AT DINNER TIME AROUND 1800. SHOP LABORER, EDWARD, VERIFIED DOSE OF INSULIN.
[2025-10-25 20:49] VITALS: BP 145/79
[2025-10-26 04:32] VITALS: BP 144/81
[2025-10-26 05:50] LABS: Hematocrit 31.2 % (37.0-53.0); Hemoglobin 9.7 g/dL (13.5-17.5)
[2025-10-26 06:37] LABS: Albumin, Blood 2.6 g/dL (3.4-5.0); Anion Gap 9 mmol/L (3-11); Blood Urea Nitrogen 42 mg/dL (8-24); CO2, Blood 25 mmol/L (21-32); Calcium, Blood 9.2 mg/dL (8.5-10.1); Chloride, Blood 108 mmol/L (98-108); Creatinine, Blood 2.06 mg/dL (0.60-1.20); Glucose, Blood 128 mg/dL (70-99); Magnesium, Blood 1.7 mg/dL (1.6-2.4); Phosphorus, Blood 3.4 mg/dL (2.5-4.9); Potassium, Blood 3.8 mmol/L (3.5-5.5); Sodium, Blood 138 mmol/L (136-145)
[2025-10-26 07:39] VITALS: BP 129/79
--- NOTE | 2025-10-26 07:39 | NUR ---
SHIFT SUMMARY; PT A/OX4 AND AT BEDREST DUE TO NEW R BKA. PT REPORTS 6/10 PAIN ON THE 0-10 PAIN SCALE. PT MEDICATED PER EMAR AND PILLOW IS PLACED UNDER R BKA. PT IS ABLE TO REPOSITION INDEPENDENTLY WHEN NEEDED. STUMP SOCK IN PLACE, APPEARS CLEAN AND PT S BLOOD GLUCOSE THIS NIGHT READING AT 99. INSULIN HELD. PT HAS HAD GOOD URINE OUTPUT THIS SHIFT, SEE INPUT AND OUTPUT. RT SET UP PT'S HOME CPAP PER PT'S REQUEST W/ O2 1 L NC ADDED TO THE LINE. VSS. BED IN LOWEST POSITION AND CALL LIGHT WITHIN REACH.
--- NOTE | 2025-10-26 14:36 | NUR ---
DISCHARGE PT DISCHARGED TO [facility] VIA WHEELCHAIR TRANSPORT. DRESSING CHANGE DONE PRIOR TO DEPARTURE. ALL BELONGINGS WITH PT SON. EDUCATION PROVIDED. REPORT GIVEN TO CATHERINE AT [facility].
[2025-10-26] MEDS ORDERED: ACET500 PO (15:57)
[2025-10-26] MEDS ORDERED: MIRALAX17 GM PO (15:58)
[2025-10-26] MEDS ORDERED: Percocet 5-3251 EACH PO (15:58)
[2025-10-26] MEDS ORDERED: VISBIOME 112.51 EACH PO (15:59)
[2025-10-26] MEDS ORDERED: CEFAZOLIN2 GM/50 M3 IV (16:00)
== END 2025-10-26 14:30 | DRG 853 ==
LOC: ER 15:59 → PCU 21:56 → ICUE 21:56 → PCU 10-22 01:06 → MEDS 10-24 16:28
PROVIDERS: Internal Medicine Nephrology; Nurse Practitioner Acute Care; Orthopaedic Surgery; Student in an Organized Health Care Education/Training Program; ADMIT Internal Medicine
PROC: 3E02340 Introduction of Influenza Vaccine into Muscle, Percutaneous Approach (ICD-10-PCS; 2025-10-20)
PROC: 3E03329 Introduction of Other Anti-infective into Peripheral Vein, Percutaneous Approach (ICD-10-PCS; 2025-10-22)
PROC: 0Y6H0Z2 Detachment at Right Lower Leg, Mid, Open Approach (ICD-10-PCS; principal; 2025-10-22 12:30)
DX: A41.01 Sepsis due to Methicillin susceptible Staphylococcus aureus (principal); N17.0 Acute kidney failure with tubular necrosis; R65.21 Severe sepsis with septic shock; L03.115 Cellulitis of right lower limb; E87.1 Hypo-osmolality and hyponatremia; Z68.42 Body mass index [BMI] 45.0-49.9, adult; M86.8X7 Other osteomyelitis, ankle and foot; M00.9 Pyogenic arthritis, unspecified; E87.20 Acidosis, unspecified; N25.81 Secondary hyperparathyroidism of renal origin; E78.5 Hyperlipidemia, unspecified; F32.A Depression, unspecified; G47.33 Obstructive sleep apnea (adult) (pediatric); E66.01 Morbid (severe) obesity due to excess calories; E88.819 Insulin resistance, unspecified; E11.610 Type 2 diabetes mellitus with diabetic neuropathic arthropathy; E11.621 Type 2 diabetes mellitus with foot ulcer; D50.9 Iron deficiency anemia, unspecified; E87.5 Hyperkalemia; R19.7 Diarrhea, unspecified; E11.649 Type 2 diabetes mellitus with hypoglycemia without coma; I12.9 Hypertensive chronic kidney disease with stage 1 through stage 4 chronic kidney disease, or unspecified chronic kidney disease; E87.6 Hypokalemia; E88.09 Other disorders of plasma-protein metabolism, not elsewhere classified; E11.22 Type 2 diabetes mellitus with diabetic chronic kidney disease; N18.2 Chronic kidney disease, stage 2 (mild); L97.519 Non-pressure chronic ulcer of other part of right foot with unspecified severity; E11.65 Type 2 diabetes mellitus with hyperglycemia; E11.69 Type 2 diabetes mellitus with other specified complication; D64.9 Anemia, unspecified; Z23 Encounter for immunization; Z89.411 Acquired absence of right great toe; Z87.19 Personal history of other diseases of the digestive system; Z99.89 Dependence on other enabling machines and devices; Z79.899 Other long term (current) drug therapy; Z79.4 Long term (current) use of insulin; Z79.84 Long term (current) use of oral hypoglycemic drugs; Z98.890 Other specified postprocedural states; Z87.891 Personal history of nicotine dependence
CPT/HCPCS: 36415; 73700; 76770; 80048; 80053; 80069; 80202; 82565; 82947; 83605; 83735; 85014; 85018; 85025; 85610; 85651; 86140; 86141; 87040; 87077; 87147; 87186; 87507; 88307; 93306; 94660; 94762; 96365; 96367; 97110; 97161; 97166; 97530; 99285-25; A9270; J0690; J0692; J0881; J1100; J1171; J1644; J2405; J2704; J2710; J3010; J3373; J3480; J7030; J7040; J7050; J7120; J7121; J7799